=== PATIENT | female | born 1980 | race Asian ===

== ENCOUNTER → 2016-11-07 | Outpatient (CLI) | payer OTHER | LOC: FIMAGING 11:46 | PROVIDERS: ATTEND Obstetrics & Gynecology | DX: Z36 Encounter for antenatal screening of mother (principal); O09.522 Supervision of elderly multigravida, second trimester; O36.8220 Fetal anemia and thrombocytopenia, second trimester, not applicable or unspecified; Z3A.19 19 weeks gestation of pregnancy ==